=== PATIENT | female | born 1985 | race Two or more races ===

== ENCOUNTER 2016-11-07 11:54 | Emergency (ER) | payer SELFPAY ==
[2016-11-07 12:00] VITALS: TEMP 98.2
[2016-11-07 12:34] LABS: % IMMATURE GRANULYOCYTES 0.2 % (0.0-1.1); ABSOLUTE IMMATURE GRANULOCYTES 0.01 10^3/uL (0.00-0.10); ADD DIFF? NO; ADD MORPH? NO; ADD SCAN? NO; ATYPICAL LYMPHOCYTE FLAG 40 (0-99); FRAGMENT RBC FLAG 0 (0-99); LEFT SHIFT FLG 0 (0-99); LIPEMIA HEMOLYSIS FLAG 90 (0-99); MEAN CELL HEMOGLOBIN 31.7 pg (27.9-34.1); MEAN CELL HEMOGLOBIN CONCENTR. 34.3 g/dL (32.4-36.7); MEAN CELL VOLUME 92.6 fL (81.5-99.8); MEAN PLATELET VOLUME 10.5 fL (8.7-11.7); PLATELET CLUMPS FLAG 0 (0-99); PLATELET COUNT 185 10^3/uL (150-400); RED BLOOD CELL COUNT 3.78 10^6/uL (4.18-5.33); RED CELL DISTRIBUTION WIDTH 12.7 % (11.5-15.2)
[2016-11-07 12:46] LABS: ANION GAP 13 mEq/L (8-16); CALCIUM 9.5 mg/dL (8.5-10.4); CARBON DIOXIDE 21 mEq/l (22-31); CHLORIDE 104 mEq/L (97-110); CREATININE 0.7 mg/dL (0.6-1.0); GLOMERULAR FILTRATION RATE > 60; GLUCOSE 79 mg/dL (70-100); POTASSIUM 3.7 mEq/L (3.5-5.2); SODIUM 138 mEq/L (134-144)
[2016-11-07] MEDS ORDERED: MAG HYDROX/AL HYDROX/SIMETH 30 ML UDCUP PO ONE (12:55)
[2016-11-07] MEDS ORDERED: LIDOCAINE 2% VISCOUS 15 ML UDCUP PO ONE (12:55)
[2016-11-07] MEDS ORDERED: PANTOPRAZOLE SODIUM 40 MG in NS 100 ML IV ONE (12:56)
--- NOTE | 2016-11-07 13:39 | EDPHY ---
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 Patient reports that she noted her stool to be dark yesterday and took a sample to her primary care provider to test for blood. She was concerned as 5 years ago she was diagnosed with peptic ulcer disease; placed on a PPI for which she started to take 3 days ago again after not taking for over 2 months. Eating and drinking normally. Denies history of constipation or straining with bowel movements. No hemorrhoids. Denies taking NSAIDs. Has not been on any oral steroids recently. Endoscopy 5 years ago; treated for H pylori infection in [facility]. LMP: 1 weeks ago. No history of abdominal surgeries. Denies regular alcohol use. Modifying Factors: Prilosec Comment: ROS: Constitutional: No fever, no chills, no weight loss Eyes: No blurred vision Respiratory: No shortness of breath, no cough Cardiovascular: No chest pain Gastrointestinal: No nausea, no vomiting no diarrhea Genitourinary: No dysuria Extremities: No myalgias Neurologic: No weakness, no numbness Skin: No rashes Hematologic: No bruising, no bleeding MEDICAL/SURGICAL HISTORY: Generally healthy. He denies any surgical history. - Personal History LMP (Females 10-55): 1-7 Days Ago Current Tetanus/Diphtheria Vaccine: Unsure Current Tetanus Diphtheria and Acellular Pertussis (TDAP): Unsure - Medical/Surgical History Hx Asthma: No Hx Chronic Respiratory Disease: No Hx Diabetes: No Hx Cardiac Disease: No Hx Renal Disease: No Hx Cirrhosis: No Hx Alcoholism: No Hx HIV/AIDS: No Hx Splenectomy or Spleen Trauma: No Other PMH: UC - Social History Smoking Status: Never smoked Alcohol Use: None - Physical Exam Exam: CONSTITUTIONAL: Adult white female, well appearing, pleasant cooperative, awake and alert, no obvious distress HEENT: Atraumatic and normocephalic, PERRL, EOMI. Tympanic membranes clear. Oropharynx clear, no exudate and moist pink mucosa. Airway patent. No lymphadenopathy. No meningismus. Cardiovascular: Normal S1/S2, regular rate, regular rhythm, without murmur rub or gallop. PULMONARY/CHEST: Symmetrical and nontender. Clear to auscultation bilaterally Good air movement. No accessory muscle usage. ABDOMEN: Soft, nondistended, nontender, no rebound, no guarding, no peritoneal signs, no masses or organomegaly. No CVAT. RECTAL: Good sphincter tone, no masses, no hemorrhoids EXTREMITIES: 2/2 pulses, no deformities, no clubbing, no cyanosis or edema. NEUROLOGICAL: no focal neuro deficits. GCS 15. SKIN: Warm and dry, no erythema. no rash. Good capillary refill. Constitutional: Initial Vital Signs Temperature (C) 36.8 C 11/07/16 11:57 Heart Rate 140 H 11/07/16 11:57 Respiratory Rate 20 11/07/16 11:57 Blood Pressure 90/74 L 11/07/16 11:57 O2 Sat (%) 100 11/07/16 11:57 O2 Delivery Mode Room Air Allergies/Adverse Reactions: No Known Allergies Allergy (Unverified 11/07/16 12:00) Home Medications: Medication Instructions Recorded Pantoprazole Sodium [Protonix 40mg 40 mg PO BID #14 tab 11/07/16 (*)] Sucralfate [Carafate 1 GM (*)] 1 gm PO ACHS #28 tab 11/07/16 Medical Decision Making ED Course/Re-evaluation: Labs, urinalysis, urine , IV medication, oral medication, CT abdomen and pelvis scan Suspect gastritis versus peptic ulcer disease. Given IV Protonix and GI cocktail with adequate relief UA does not show signs of infection; specific gravity normal 1445: called by radiologist who reports that CT abdomen and pelvis scan showed no colitis/inflammatory bowel disease/pancreatitis/obstruction/gallbladder disease. + right ovarian cyst; no torsion. Will have patient follow up with GI outpatient for EGD, increase PPI to 40 twice daily, Carafate x 1 week, limit irritant foods. Differential Diagnosis: Abdominal pain in a female including but not limited to ovarian cyst, pelvic inflammatory disease, ovarian torsion, urinary tract infection, and appendicitis. Guaiac is trace positive H&H is stable; no active bleeding in the ER - Data Points Laboratory Results: Laboratory Results 11/07/16 12:20 11/07/16 12:20 11/07/16 11/07/16 11/07/16 13:35 12:54 12:20 WBC RBC Hgb Hct MCV MCH MCHC RDW Plt Count MPV Neut % (Auto) Lymph % (Auto) [place] % (Auto) Eos % (Auto) Baso % (Auto) Nucleat RBC Rel Count Absolute Neuts (auto) Absolute Lymphs (auto) Absolute Monos (auto) Absolute Eos (auto) Absolute Basos (auto) Absolute Nucleated RBC Immature Gran % Immature Gran # Sodium 138 mEq/L mEq/L (134-144) Potassium 3.7 mEq/L mEq/L (3.5-5.2) Chloride 104 mEq/L mEq/L (97-110) Carbon Dioxide 21 mEq/l L mEq/l (22-31) Anion Gap 13 mEq/L mEq/L (8-16) BUN 14 mg/dL mg/dL (7-23) Creatinine 0.8 mg/dL mg/dL (0.6-1.0) Estimated GFR > 60 Glucose 79 mg/dL mg/dL (70-100) Calcium 9.5 mg/dL mg/dL (8.5-10.4) Total Bilirubin 2.3 mg/dL H mg/dL (0.1-1.4) Conjugated Bilirubin 0.3 mg/dL mg/dL (0.0-0.5) Unconjugated Bilirubin 2.0 mg/dL H mg/dL (0.0-1.1) AST 15 IU/L IU/L (14-46) ALT 25 IU/L IU/L (9-52) Alkaline Phosphatase 37 IU/L L IU/L (38-126) Total Protein 7.2 g/dL g/dL (6.3-8.2) Albumin 4.4 g/dL g/dL (3.5-5.0) Lipase 127 IU/L IU/L (23-300) Urine Color PALE YELLOW Urine Appearance CLEAR Urine pH 6.0 (5.0-7.5) Ur Specific [place] 1.004 (1.002-1.030) Urine Protein NEGATIVE (NEGATIVE) Urine Ketones TRACE H (NEGATIVE) Urine Blood NEGATIVE (NEGATIVE) Urine Nitrate NEGATIVE (NEGATIVE) Urine Bilirubin NEGATIVE (NEGATIVE) Urine Urobilinogen NEGATIVE EU EU (0.2-1.0) Ur Leukocyte Esterase NEGATIVE (NEGATIVE) Urine Glucose NEGATIVE (NEGATIVE) Stool Occult Bld Scrn POSITIVE H (NEGATIVE) 11/07/16 11/07/16 12:20 12:20 WBC 4.76 10^3/uL 10^3/uL (3.80-9.50) RBC 3.78 10^6/uL L 10^6/uL (4.18-5.33) Hgb 12.0 g/dL L g/dL (12.6-16.3) Hct 35.0 % L % (38.0-47.0) MCV 92.6 fL fL (81.5-99.8) MCH 31.7 pg pg (27.9-34.1) MCHC 34.3 g/dL g/dL (32.4-36.7) RDW 12.7 % % (11.5-15.2) Plt Count 185 10^3/uL 10^3/uL (150-400) MPV 10.5 fL fL (8.7-11.7) Neut % (Auto) 49.6 % % (39.3-74.2) Lymph % (Auto) 41.2 % % (15.0-45.0) [place] % (Auto) 7.8 % % (4.5-13.0) Eos % (Auto) 0.8 % % (0.6-7.6) Baso % (Auto) 0.4 % % (0.3-1.7) Nucleat RBC Rel Count 0.0 % % (0.0-0.2) Absolute Neuts (auto) 2.36 10^3/uL 10^3/uL (1.70-6.50) Absolute Lymphs (auto) 1.96 10^3/uL 10^3/uL (1.00-3.00) Absolute Monos (auto) 0.37 10^3/uL 10^3/uL (0.30-0.80) Absolute Eos (auto) 0.04 10^3/uL 10^3/uL (0.03-0.40) Absolute Basos (auto) 0.02 10^3/uL 10^3/uL (0.02-0.10) Absolute Nucleated RBC 0.00 10^3/uL 10^3/uL (0-0.01) Immature Gran % 0.2 % % (0.0-1.1) Immature Gran # 0.01 10^3/uL 10^3/uL (0.00-0.10) Sodium 138 mEq/L mEq/L (134-144) Potassium 3.7 mEq/L mEq/L (3.5-5.2) Chloride 104 mEq/L mEq/L (97-110) Carbon Dioxide 21 mEq/l L mEq/l (22-31) Anion Gap 13 mEq/L mEq/L (8-16) BUN 14 mg/dL mg/dL (7-23) Creatinine 0.7 mg/dL mg/dL (0.6-1.0) Estimated GFR > 60 Glucose 79 mg/dL mg/dL (70-100) Calcium 9.5 mg/dL mg/dL (8.5-10.4) Total Bilirubin Conjugated Bilirubin Unconjugated Bilirubin AST ALT Alkaline Phosphatase Total Protein Albumin Lipase Urine Color Urine Appearance Urine pH Ur Specific [place] Urine Protein Urine Ketones Urine Blood Urine Nitrate Urine Bilirubin Urine Urobilinogen Ur Leukocyte Esterase Urine Glucose Stool Occult Bld Scrn Medications Given: Discontinued Medications Al Hydroxide/Mg Hydroxide (Maalox Susp) 30 ml PO ONCE ONE Stop: 11/07/16 12:56 Last Admin: 11/07/16 13:02 Dose: 30 ml Pantoprazole Sodium 40 mg/ (Sodium Chloride) 100 mls @ 200 mls/hr IV EDNOW ONE Stop: 11/07/16 13:25 Last Admin: 11/07/16 13:03 Dose: 100 mls Lidocaine (Lidocaine 2% Viscous) 15 ml PO ONCE ONE Stop: 11/07/16 12:56 Last Admin: 11/07/16 13:02 Dose: 15 ml Departure - Departure Disposition: Home, Routine, Self-Care Clinical Impression: PUD (peptic ulcer disease) Gastritis Qualifiers: Gastritis type: unspecified gastritis Chronicity: acute Gastritis bleeding: presence of bleeding unspecified Qualified Code(s): K29.00 - Acute gastritis without bleeding Condition: Good Instructions: Peptic Ulcer (ED), Gastritis (ED), Diet for Stomach Ulcers and Gastritis (ED) Referrals: Carlo Mccoy MD [Medical Doctor] - As per Instructions Prescriptions: Pantoprazole Sodium [Protonix 40mg (*)] 40 mg PO BID #14 tab Sucralfate [Carafate 1 GM (*)] 1 gm PO ACHS #28 tab Print Language: Wolof
[2016-11-07 13:47] LABS: COLOR PALE YELLOW; LEUKOCYTE ESTERASE,URINE NEGATIVE (NEGATIVE); NITRITE,URINE NEGATIVE (NEGATIVE)
[2016-11-07 13:57] LABS: ALANINE AMINOTRANSFERASE 25 IU/L (9-52); ALBUMIN 4.4 g/dL (3.5-5.0); ALKALINE PHOSPHATASE 37 IU/L (38-126); ANION GAP 13 mEq/L (8-16); ASPARTATE AMINOTRANSFERASE 15 IU/L (14-46); BILIRUBIN,TOTAL 2.3 mg/dL (0.1-1.4); BILIRUBIN-CONJUGATED 0.3 mg/dL (0.0-0.5); CALCIUM 9.5 mg/dL (8.5-10.4); CARBON DIOXIDE 21 mEq/l (22-31); CHLORIDE 104 mEq/L (97-110); CREATININE 0.8 mg/dL (0.6-1.0); GLOMERULAR FILTRATION RATE > 60; GLUCOSE 79 mg/dL (70-100); POTASSIUM 3.7 mEq/L (3.5-5.2); SODIUM 138 mEq/L (134-144); TOTAL PROTEIN 7.2 g/dL (6.3-8.2)
[2016-11-07] MEDS ORDERED: IOPAMIDOL (ISOVUE-300) 100 ML BTL ONE (14:03)
[2016-11-07 15:24] VITALS: BP 91/47; PULSE 72; RESP 16; O2SAT 93
== END 2016-11-07 15:24 | disposition home or self-care (01) ==
DX: K29.00 Acute gastritis without bleeding (principal); K27.9 Peptic ulcer, site unspecified, unspecified as acute or chronic, without hemorrhage or perforation
CPT/HCPCS: 96365; Q9967

== ENCOUNTER 2017-12-10 17:58 | Inpatient (IN) | payer OTHER ==
[2017-12-10] MEDS ORDERED: PANTOPRAZOLE SODIUM 40 MG VIAL IVP ONE (18:18)
--- NOTE | 2017-12-10 18:21 | EDPHY ---
H & P Time Seen by Provider: 12/10/17 18:09 HPI/ROS: CHIEF COMPLAINT: Vomiting blood HISTORY OF PRESENT ILLNESS: The patient is a 32-year-old female with history of gastritis and bleeding ulcer here with chief complaint of 1 bout of bloody emesis just prior to arrival. She reports vomiting a large amount of blood after feeling nauseous. She has had no bloody emesis since. She has noticed no dark tarry stools. She has reported feeling generally weak for the last 7 days or so. She had an upper endoscopy done in March of 2017 in [facility] which showed gastritis without ulcer. She takes no prescribed medications. She takes no blood thinners. She denies any pain. REVIEW OF SYSTEMS: Constitutional: No fever, no chills. Eyes: No discharge. ENT: No sore throat. Cardiovascular: No chest pain, no palpitations. Respiratory: No cough, no shortness of breath. Gastrointestinal: No abdominal pain, + vomiting. Genitourinary: No hematuria. Musculoskeletal: No back pain. Skin: No rashes. Neurological: No headache. Smoking Status: Never smoked Physical Exam: General Appearance: Alert and no distress. Eyes: Pupils equal and round no injection. Respiratory: Chest is nontender, lungs are clear to auscultation. Cardiac: regular rate and rhythm. Gastrointestinal: Abdomen is soft and nontender, no masses, bowel sounds normal. Musculoskeletal: Neck is supple and nontender. Extremities have full range of motion and are nontender. Skin: No rashes or lesions. Constitutional: Initial Vital Signs Temperature (C) 36.8 C 12/10/17 18:01 Heart Rate 109 H 12/10/17 18:01 Respiratory Rate 16 12/10/17 18:01 Blood Pressure 88/64 L 12/10/17 18:01 O2 Sat (%) 99 12/10/17 18:01 O2 Delivery Mode Room Air Allergies/Adverse Reactions: No Known Allergies Allergy (Unverified 11/07/16 12:00) Home Medications: Medication Instructions Recorded Cholecalciferol Vit D3 [Vitamin D3 5,000 units PO DAILY 12/10/17 (*)] Herbals/Supplements -Info Only 1 ea PO DAILY 12/10/17 Medical Decision Making ED Course/Re-evaluation: 32-year-old female here with 1 episode of vomiting bright red blood. She did vomit approximately 20 30 mL of bright red blood. She remained hemodynamically stable in the emergency room with no hypotension or tachycardia. Her hemoglobin is 11 with a normal BU N. I discussed the case with GI who agreed with admission for upper and dog's could be tomorrow morning. She was given 40 mg IV Protonix. Patient was concerned about the cost of staying overnight in the hospital and having the the scope done tomorrow. States that it was my medical recommendation as he stayed the night be monitored before having the upper endoscopy done tomorrow given the amount of blood that she has vomited. Patient is agreeable with this plan after multiple discussions. Differential Diagnosis: Rae-Ayon tear, gastric ulcer, ulcer perforation - Data Points Laboratory Results: Laboratory Results 12/10/17 18:15 12/10/17 18:15 12/10/17 12/10/17 12/10/17 18:15 18:15 18:15 WBC 6.75 10^3/uL 10^3/uL (3.80-9.50) RBC 3.60 10^6/uL L 10^6/uL (4.18-5.33) Hgb 11.1 g/dL L g/dL (12.6-16.3) Hct 33.7 % L % (38.0-47.0) MCV 93.6 fL fL (81.5-99.8) MCH 30.8 pg pg (27.9-34.1) MCHC 32.9 g/dL g/dL (32.4-36.7) RDW 12.9 % % (11.5-15.2) Plt Count 209 10^3/uL 10^3/uL (150-400) MPV 10.2 fL fL (8.7-11.7) Neut % (Auto) 41.3 % % (39.3-74.2) Lymph % (Auto) 48.7 % H % (15.0-45.0) [place] % (Auto) 7.6 % % (4.5-13.0) Eos % (Auto) 1.8 % % (0.6-7.6) Baso % (Auto) 0.3 % % (0.3-1.7) Nucleat RBC Rel Count 0.0 % % (0.0-0.2) Absolute Neuts (auto) 2.79 10^3/uL 10^3/uL (1.70-6.50) Absolute Lymphs (auto) 3.29 10^3/uL H 10^3/uL (1.00-3.00) Absolute Monos (auto) 0.51 10^3/uL 10^3/uL (0.30-0.80) Absolute Eos (auto) 0.12 10^3/uL 10^3/uL (0.03-0.40) Absolute Basos (auto) 0.02 10^3/uL 10^3/uL (0.02-0.10) Absolute Nucleated RBC 0.00 10^3/uL 10^3/uL (0-0.01) Immature Gran % 0.3 % % (0.0-1.1) Immature Gran # 0.02 10^3/uL 10^3/uL (0.00-0.10) Sodium 137 mEq/L mEq/L (135-145) Potassium 4.0 mEq/L mEq/L (3.3-5.0) Chloride 106 mEq/L mEq/L (97-110) Carbon Dioxide 24 mEq/l mEq/l (22-31) Anion Gap 7 mEq/L L mEq/L (8-16) BUN 17 mg/dL mg/dL (7-23) Creatinine 0.6 mg/dL mg/dL (0.6-1.0) Estimated GFR > 60 Glucose 107 mg/dL H mg/dL (70-100) Calcium 8.5 mg/dL mg/dL (8.5-10.4) Beta HCG, Qual NEGATIVE Medications Given: Sodium Chloride (Ns) 1,000 mls @ 75 mls/hr IV CONT CHASE Stop: 06/08/18 20:14 Last Admin: 12/10/17 21:43 Dose: 1,000 mls Melatonin (Melatonin) 3 mg PO HS CHASE Stop: 06/08/18 20:59 Last Admin: 12/10/17 21:48 Dose: Not Given Discontinued Medications Pantoprazole Sodium (Protonix) 40 mg IVP EDNOW ONE Stop: 12/10/17 18:19 Last Admin: 12/10/17 18:28 Dose: 40 mg Departure - Departure Disposition: [facility]
[2017-12-10 18:26] LABS: PLATELET COUNT 209 10^3/uL (150-400)
[2017-12-10] MEDS ORDERED: ACETAMINOPHEN 325 MG TAB PO PRN (20:05)
[2017-12-10] MEDS ORDERED: ONDANSETRON 4 MG/2 ML VIAL IVP PRN (20:05)
[2017-12-10] MEDS ORDERED: ZOLPIDEM TARTRATE 5 MG TAB PO PRN (20:05)
[2017-12-10] MEDS ORDERED: NS 1,000 ML IV SCH (20:15)
[2017-12-10] MEDS: MELATONIN 3 MG TAB PO SCH (21:48)
--- NOTE | 2017-12-10 23:06 | PDGENHP ---
History and Physical History and Physical: CC: Hematemesis HISTORY: This patient presents to the emergency room today after a moderately large volume of hematemesis with some mild nausea but without abdominal pain. There was 1 episode and the patient brings in with the ER physician described to me as approximately a cup of bright red blood. She does not take NSAIDs does not drink alcohol does not have history of liver disease. She has had no vomiting prior to the 1 emesis episode today and has had normal stools lately. She has had no new nausea and has not been having abdominal pains or bowel issues. She was seen here 1 year ago with some melenic stools with some abdominal pain. She had a CT scan abdomen that was unremarkable. At that time is recommended that she see Gastroenterology to consider endoscopy, however she apparently did not have any follow up with Gastroenterology The patient does state she has had 1 episode of bleeding ulcer in the past as well as some episodes of nonbleeding ulcer and some gastritis episodes in the past and she has had for upper endoscopies in the past. She was treated in her home country of [facility] for Helicobacter pylori in the past and since then has had both endoscopic and blood test showing evidence of a right occasion of the H pylori. As far as I can tell none of her ulcer or gastritis episodes were caused by NSAIDs and she does not drink any alcohol. She has no history of liver disease. There is no history of ulcer disease in the family. ROS: A comprehensive 10 system review revealed no other significant findings PAST MEDICAL HISTORY: GI bleed Peptic ulcer Gastritis Treated Helicobacter pylori with tests subsequently showing no evidence of H pylori FAMILY MEDICAL HISTORY: Hyper hypothyroidism SOCIAL HISTORY: She is accompanied by her No tobacco or alcohol no street drugs MEDICATIONS: The patients list has been reconciled by our clinical pharmacist in the EMR. I have reviewed the list and ordered appropriate medicines. 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: Examination: General: alert, oriented, good mentation, relaxed Skin: warm, dry, good color, no rash HEENT: normal Neck: no mass or jvd Resps: relaxed Lungs: clear breath sounds Heart: regular, no murmur Abdomen: soft, nondistended, nontender, +BS, no mass No Bleeding or bruising Neurologic: normal speech/language, normal director of acquisitions, no focal weakness IV site: looks normal LABORATORY DATA: Hemoglobin 11 normocytic otherwise normal CBC Negative test Normal basic metabolic panel RADIOLOGY STUDIES: None ASSESSMENT: * acute upper GI bleed with hematemesis * initial mild low blood pressure and high pulse have responded very quickly to fluid * mild normocytic anemia uncertain baseline with a long history of anemia * prior history of ulcer and gastritis along with GI bleeds, apparently successfully treated H pylori in the past with recurrent episodes of peptic trouble since that treatment; no use of NSAIDs to explain her peptic disease PLANS: * Observe here in the hospital * IV hydration * Serial hemoglobin counts * IV Protonix has been started will continue * NPO for the moment * Upper endoscopy tomorrow morning, Dr. King has been notified and is planning on endoscopy I have reviewed the patient's case in detail with Robert Nieto of the ER I have reviewed the patient's past medical records as part of this assessment, including previous ER visit records and lab studies
[2017-12-11 05:15] LABS: INR 1.2 (0.83-1.16); PROTIME(PATIENT) 15.4 SEC (12.0-15.0)
[2017-12-11 05:18] LABS: PLATELET COUNT 177 10^3/uL (150-400)
[2017-12-11] MEDS: PANTOPRAZOLE SODIUM 40 MG VIAL IVP SCH ×2 (08:05→20:16)
[2017-12-11] MEDS ORDERED: LR 1,000 ML IV ONE (09:14)
--- NOTE | 2017-12-11 09:50 | GCON ---
DATE OF CONSULTATION: 12/11/2017 REFERRING PHYSICIAN: Gavin Garcia MD REASON FOR CONSULTATION: Hematemesis. HISTORY OF PRESENT ILLNESS: Cassandra is a 32-year-old female who has a history of recurrent peptic ulcer disease, who was admitted to hospital to observation through the emergency room last night after one episode of hematemesis of 300 cc of bright red blood, which was preceded by nausea and diaphoresis. She denied any black, tarry stools preceding or post vomiting. She has denied any use of nonsteroidal anti-inflammatory drugs. She does not drink alcohol or smoke tobacco. She does have a remote history of peptic ulcer diagnosed on upper endoscopy in [facility] several years ago, which she was noted to have Helicobacter pylori gastritis. She was treated with acid suppression and antibiotic therapy with followup endoscopy showing only mild gastritis and H pylori negative. She had an episode of a GI bleed one year ago which was treated medically and was not scoped here in the [facility], but on return to [facility] she stated she had an endoscopy which showed mild inflammation only with H pylori negative. She does have a history of recurrent iron deficiency. She denies any heavy menses in the past. She was on melatonin 3 mg at bedtime prior to admission. ALLERGIES: She has no known drug allergies. PAST MEDICAL HISTORY: Otherwise unremarkable. PAST SURGICAL HISTORY: Negative. FAMILY HISTORY: Negative for PUD, celiac disease of GI malignancies. SOCIAL HISTORY: She is . She lives in [place] with her . She has received her primary care at [facility] in the past. She does not smoke tobacco or use illicit drugs. REVIEW OF SYSTEMS: Other than recent episode of hematemesis, nausea and diaphoresis were negative for comprehensive review of systems. EXAM: VITAL SIGNS: Temperature is 36.9 Celsius, pulse is 85 and regular, blood pressure 104/60, respiratory rate is 12, O2 saturation 97% on room air. GENERAL: A slight built female lying in bed, in no apparent distress. INTEGUMENT: Clear. HEENT: Head atraumatic, normocephalic. Pupils equal, round, react to light. EOMs intact. Sclerae nonicteric. Mucous membranes moist. Dentition good. Nares patent. NECK: Supple. Trachea midline. PULMONARY: Lungs were clear to percussion and auscultation. CARDIOVASCULAR: Regular rhythm, rate. Normal S1, S2 without murmur. Peripheral pulses strong bilaterally. No pedal edema. GASTROINTESTINAL: Abdomen flat and supple. Positive bowel sounds. No liver, spleen tip palpable. There is mild tenderness in the epigastrium to deep palpation without palpable mass or rebound. EXTREMITIES: Without deformity. NEURO: Patient was alert and oriented x3. There are no focal neurologic deficits. LABS: Admission hemoglobin 11.1, hematocrit 33.7. With hydration this a.m. hemoglobin 9.9, hematocrit 30.0, MCV is 92, MCHC 33, RDW 13.0, platelets 177,000 , white count 7.34. Pro time: 15.4, INR 1.2. Electrolytes normal. Potassium 4.0, BUN is 17, creatinine 0.6, glucose 107. Beta HCG is negative. Calcium 8.5. IMPRESSION: Hematemesis and posthemorrhagic anemia in an otherwise healthy 32- year-old female with a history of recurrent peptic ulcer disease and prior history of Helicobacter pylori gastritis, rule out recurrent peptic ulcer with bleed, rule out Helicobacter pylori gastritis, rule out celiac disease as an etiology for the patient's recurrent iron deficiency, albeit no evidence of iron deficiency today. RECOMMENDATION: Would be: 1. N.p.o. 2. IV PPI therapy. 3. Esophagogastroduodenoscopy later today with gastric biopsy to rule out H pylori, small bowel biopsies to rule out celiac disease and intervention with endoclipping or cauterization of peptic ulcer if identified and felt to be at high risk for rebleed. /[id number]/MODL MTDD
--- NOTE | 2017-12-11 10:03 | PDANEPAE ---
ANE History of Present Illness EGD for GI bleed ANE Past Medical History - Cardiovascular History Hx Hypertension: No Hx Arrhythmias: No Hx Chest Pain: No Hx Coronary Artery / Peripheral Vascular Disease: No Hx CHF / Valvular Disease: No Hx Palpitations: No - Pulmonary History Hx COPD: No Hx Asthma/Reactive Airway Disease: No Hx Recent Upper Respiratory Infection: No Hx Oxygen in Use at Home: No Hx Sleep Apnea: No Sleep Apnea Screening Result - Last Documented: Negative - Endocrine History Hx Diabetes: No Hypothyroid: No Hyperthyroid: No Obesity: no - Chronic Pain History Chronic Pain: No ANE Review of Systems Review of systems is: negative Review of Systems: - Exercise capacity Exercise capacity: >=4 METS ANE Patient History - Allergies Allergies/Adverse Reactions: No Known Allergies Allergy (Unverified 11/07/16 12:00) - Home Medications Home medications: home medication list seen and reviewed Home Medications: Cholecalciferol Vit D3 [Vitamin D3 (*)] 5,000 units PO DAILY 12/10/17 [Last Taken 12/10/17] Herbals/Supplements -Info Only 1 ea PO DAILY 12/10/17 [Last Taken 12/10/17] - NPO status NPO Since - Liquids (Date): 12/10/17 NPO Since - Liquids (Time): 16:00 NPO Since - Solids (Date): 12/10/17 NPO Since - Solids (Time): 16:00 - Anes Hx Anes Hx: no prior problems - Smoking Hx Smoking Status: Never smoked ANE Labs/Vital Signs - Labs Result Diagrams: 12/11/17 04:45 12/10/17 18:15 - Vital Signs Blood Pressure: 104/60 Heart Rate: 85 Respiratory Rate: 12 O2 Sat (%): 97 Height: 170 cm Weight: 53 kg ANE Physical Exam - Airway Neck exam: FROM Mallampati Score: Class 2 Mouth exam: normal dental/mouth exam - Pulmonary Pulmonary: no respiratory distress - Cardiovascular Cardiovascular: regular rate and rhythym - ASA Status ASA Status: II ANE Anesthesia Plan Anesthesia Plan: GA with mask
--- NOTE | 2017-12-11 10:03 | POSTANESTH ---
Post Anesthetic Evaluation Cardiovascular Status: Normal, Stable Respiratory Status: Normal, Stable Level of Consciousness/Mental Status: Can Participate in Eval, Mildly Sleepy, Arousable Pain Control: Adequate, Prn Tx Ordered Nausea/Vomiting Control: Adequate, Prn Tx Ordered Complications Possibly Related to Anesthesia: None Noted
[2017-12-11] MEDS ORDERED: LIDOCAINE 2% 2 ML INJ ONE (10:08)
[2017-12-11] MEDS ORDERED: PROPOFOL 200 MG/20 ML VIAL ONE (10:25)
[2017-12-11] MEDS ORDERED: ALBUTEROL 3 ML DEYVIAL IH PRN (10:32)
[2017-12-11] MEDS ORDERED: fentaNYL 100 MCG/2 ML INJ IVP PRN (10:32)
[2017-12-11] MEDS ORDERED: ONDANSETRON 4 MG/2 ML VIAL IVP PRN (10:32)
[2017-12-11] MEDS ORDERED: LR 500 ML IV PRN (10:32)
[2017-12-11] MEDS ORDERED: NALOXONE HCL 0.4 MG/ML INJ IVP PRN (10:32)
--- NOTE | 2017-12-11 10:54 | GIREPORT ---
[facility] Surgical Services - Endoscopy Department Patient Name: Cassandra Patel Procedure Date: 12/11/2017 8:36 AM Patient Type: Inpatient Attending MD/ ER Physician: Santiago King MD Procedure: Upper GI endoscopy Indications: Epigastric abdominal pain, Hematemesis, Melena, Acute post hemorrhagic anemia Providers: Santiago King MD Medicines: Propofol per Anesthesia Complications: No immediate complications. Description of Procedure: After obtaining informed consent, the endoscope was passed under direct vision. Throughout the procedure, the patient's blood pressure, pulse, and oxygen saturations were monitored continuously. The Endoscope was intro duced through the mouth, and advanced to the third part of duodenum. The uppe r GI endoscopy was accomplished without difficulty. The patient tolerated e procedure well. Findings: The examined esophagus was normal. One oozing cratered gastric ulcer with a visible vessel was found in th e gastric fundus and on the greater curvature of the stomach. The lesion was 8 mm in largest dimension. For hemostasis, one hemostatic clip was successfully placed. There was no bleeding at the end of the procedure. Patchy nodular mucosa was found in the gastric body and in the gastric antrum. Biopsies were taken with a cold forceps for histology. The examined duodenum was normal. Biopsies for histology were taken wit h a cold forceps for evaluation of celiac disease. Estimated Blood Loss: Estimated blood loss: none. Post Op Diagnosis: - Normal esophagus. - Oozing gastric ulcer with a visible vessel. Clip was placed. - Nodular mucosa in the gastric body and in the gastric antrum. Biopsie d. - Normal examined duodenum. Biopsied. Recommendation: - [facility]. - Continue present medications. - Clear liquid diet today. - Check hemoglobin q 12 hours for two days. - Await pathology results. - Repeat upper endoscopy in 2 months to check healing. Attending Participation: I personally performed the entire procedure. Santiago King MD Santiago King MD 12/11/2017 10:53:56 AM This report has been signed electronicallySantiago King MD Number of Addenda: 0 Note Initiated On: 12/11/2017 8:36 AM [email or web address]
--- NOTE | 2017-12-11 12:44 | ASMTCMCOM ---
CM Note CM Note Notes: Pt admitted with upper GI bleed, hx of H pylori. She is from [facility] and [facility] and a patient at the [facility]. She lives at home with her . Plan is for her to get an endoscopy today. CM spoke w/RN, anticipate she will dc home w/support of when medically stable. CM available for any changes. DC Plan: Independent Date Signed: 12/11/2017 12:44 PM Electronically Signed By:Katty Jaquez RN
--- NOTE | 2017-12-11 15:27 | HOSPPROG ---
Hospitalist Progress Note Assessment/Plan: * Gastric ulcer with visible vessel s/p clip -clear liquids -serial HH q12 x 2 days -pathology pending -repeat EGD 2 months -PPI * Acute blood loss anemia -follow * Elevated PT -check LFT Subjective: No new complaints. Objective: Vital Signs Temp Pulse Resp BP Pulse Ox 36.9 C 83 12 94/48 L 98 12/11/17 14:23 12/11/17 14:23 12/11/17 14:23 12/11/17 14:23 12/11/17 14:23 Laboratory Results 12/11/17 04:45 12/10/17 12/11/17 12/12/17 05:59 05:59 05:59 Intake Total 350 Balance 350 PT 15.4 SEC (12.0-15.0) H 12/11/17 04:45 INR 1.20 (0.83-1.16) H 12/11/17 04:45 - Physical Exam Constitutional: no apparent distress, appears nourished, not in pain Cardiovascular: regular rate and rhythym, no murmur, rub, or gallop Respiratory: no respiratory distress, no rales or rhonchi, clear to auscultation Gastrointestinal: normoactive bowel sounds, soft, non-tender abdomen, no palpable masses Skin: no rashes or abrasions, no fluctuance, no induration Neurologic: AAOx3, sensation intact bilaterally Psychiatric: interacting appropriately, not anxious, not encephalopathic, thought process linear Lymph, Heme, Immunologic: no cervical LAD, no supraclavicular LAD ICD10 Worksheet Patient Problems: Problems Problem Status Onset Gastric ulcer Acute - ICD10 Problem Qualifiers (1) Gastric ulcer
--- NOTE | 2017-12-11 17:49 | PDMN ---
Medical Necessity Medical necessity: MCG :M180 GIB upper: A-2 days hematemesis with dropping H/ H EGD shows gastric ulcer with visible vessel S/P clip - further monitoring of H/H , acute blood loss anemia cont. to monitor and eval. status changed to INPT 12/11/17 for ongoing med nec. > 2 MN
[2017-12-11] MEDS: MELATONIN 3 MG TAB PO SCH (20:20)
[2017-12-12 05:47] LABS: INR 1.23 (0.83-1.16); PROTIME(PATIENT) 15.7 SEC (12.0-15.0)
[2017-12-12] MEDS: PANTOPRAZOLE SODIUM 40 MG VIAL IVP SCH (07:50)
[2017-12-12] MEDS ORDERED: PHYTONADIONE 2.5 MG/2.5 ML ORAL UDL PO ONE (08:29)
--- NOTE | 2017-12-12 10:00 | SOAPPROG ---
SOAP Progress Note Assessment/Plan: Assessment: 1. with bleed; S/P endo clip with hemostasis with post hemorrhagic anemia. 2. Melena x 1 since EGD, likely old blood. 3. Low ALB and elevated PT; likely consumptive from acute on chronic UGI bleed. 4. Elevated T. Bili without elevation of AST/ALT c/w Gilbert's Syndrome. Plan: 1. Regular diet after RUQ US. 2. D/C IV PPI. Protonix 40 mg PO BID x 2 months. 3. Repeat EGD in 2 months. 4. ? Home tomorrow if no further GI bleeding. Santiago King MD 12/12/17 10:01 Subjective: CC: with bleed. Interval HPI: One black stool since EGD and mild epigastric discomfort. Objective: Vital Signs Temp Pulse Resp BP Pulse Ox 36.7 C 74 12 103/50 L 97 12/12/17 07:55 12/12/17 07:55 12/12/17 07:55 12/12/17 07:55 12/12/17 07:55 Laboratory Results 12/12/17 04:50 12/11/17 12/12/17 12/13/17 05:59 05:59 05:59 Intake Total 450 Balance 450 PT 15.7 SEC (12.0-15.0) H 12/12/17 04:50 INR 1.23 (0.83-1.16) H 12/12/17 04:50 Physical Exam - Physical Exam General Appearance: alert, no apparent distress Respiratory: lungs clear, normal breath sounds Cardiac/Chest: normal peripheral pulses, regular rate, rhythm Abdomen: normal bowel sounds, non-tender, soft Skin: normal color, warm/dry Neuro/Psych: alert, normal mood/affect ICD10 Worksheet Patient Problems: Problems Problem Status Onset Gastric ulcer Acute
--- NOTE | 2017-12-12 10:29 | ASMTCMCOM ---
CM Note CM Note Notes: CM spoke with RN, patient likely to discharge tomorrow 12/13 independent. CM to follow. Date Signed: 12/12/2017 10:29 AM Electronically Signed By:Dorita Godinez
--- NOTE | 2017-12-12 16:22 | HOSPPROG ---
Hospitalist Progress Note Assessment/Plan: * Gastric ulcer with visible vessel s/p clip -serial HH q12 x 2 days -pathology pending -repeat EGD 2 months -PPI * Acute blood loss anemia -follow * Elevated PT -PO Vit K x 1 * Low albumin - ? malnutrition vs consumption due to chronic GIB * Protivin * Fatty liver by US Subjective: No new complaints Objective: Vital Signs Temp Pulse Resp BP Pulse Ox 36.7 C 78 12 95/48 L 97 12/12/17 15:11 12/12/17 15:11 12/12/17 15:11 12/12/17 15:11 12/12/17 15:11 Laboratory Results 12/12/17 04:50 12/11/17 12/12/17 12/13/17 05:59 05:59 05:59 Intake Total 450 Balance 450 PT 15.7 SEC (12.0-15.0) H 12/12/17 04:50 INR 1.23 (0.83-1.16) H 12/12/17 04:50 d/w Dr. King regarding LFT abnormalities Abd US - fatty liver - Physical Exam Constitutional: no apparent distress, appears nourished, not in pain Cardiovascular: regular rate and rhythym, no murmur, rub, or gallop Respiratory: no respiratory distress, no rales or rhonchi, clear to auscultation Gastrointestinal: normoactive bowel sounds, soft, non-tender abdomen, no palpable masses Skin: no rashes or abrasions, no fluctuance, no induration Neurologic: AAOx3, sensation intact bilaterally Psychiatric: interacting appropriately, not anxious, not encephalopathic, thought process linear ICD10 Worksheet Patient Problems: Problems Problem Status Onset Gastric ulcer Acute - ICD10 Problem Qualifiers (1) Gastric ulcer
[2017-12-12] MEDS: PANTOPRAZOLE SODIUM 40 MG TAB PO SCH (20:27)
[2017-12-12] MEDS: MELATONIN 3 MG TAB PO SCH (20:30)
[2017-12-13 05:30] LABS: INR 1.13 (0.83-1.16); PROTIME(PATIENT) 14.7 SEC (12.0-15.0)
[2017-12-13 08:29] VITALS: BP 104/52
--- NOTE | 2017-12-13 10:11 | ASMTLACE ---
LACE Length of stay for Answers: 2 days current admission Acuity / Level of Answers: Yes Care: Did the patient have an inpatient admission? Comorbidities - select Answers: Peptic ulcer disease all that apply # of Emergency department Answers: 1-2 visits in the last 6 months Score: 8 Date Signed: 12/13/2017 10:10 AM Electronically Signed By:Monica Vance RN
--- NOTE | 2017-12-13 10:14 | ASMTDCNOTE ---
Case Management Discharge Discharge Order Complete? Answers: Yes Patient to Obtain Answers: Independently Medications Transportation Arranged Answers: Family/Friends Discharge Comments Notes: D/W MD, patient will discharge independently today. No CM needs identified. CM available for any changes or needs that arise. Date Signed: 12/13/2017 10:14 AM Electronically Signed By:Monica Vance RN
[2017-12-13] MEDS: PANTOPRAZOLE SODIUM 40 MG TAB PO SCH (10:19)
--- NOTE | 2017-12-13 17:49 | GDS ---
DISCHARGE DIAGNOSES: 1. Upper gastrointestinal bleed. 2. Gastric ulcer with visible vessel, status post clipping. 3. Acute blood loss anemia. 4. Elevated protime suspect consumptive. 5. Low albumin, suspect due to chronic gastrointestinal bleed. 6. Gilbert's. 7. Fatty liver. HISTORY: This Cassandra is a 32-year-old female with a history of previous gastric ulcer. She has previ ously been treated for H. pylori. She now re-presents to the hospital with recurrent upper GI bleed and acute blood loss anemia. She underwent EGD that showed a gastric ulcer with visible vessel. Dr. King recommended serial hemoglobins and Hs q.12 hours for 2 days, which remain stable. Pathol ogy remains pending at discharge. She will follow up results with Dr. King. Repeat EGD recomme nded in 2 months. She will continue on a proton pump inhibitor until that time. Her protime was elevated, this did respond to a dose of oral vitamin K, she also had a low albumin. I suspect she has been having a chronic GI bleed for some time and that has been consumptive of these elements. She is advised to eat a healthy diet. Anticipate these will improve. She did get an abd ominal ultrasound that incidentally showed fatty liver. Although that is of unclear significance. DISCHARGE MEDICATIONS: Please see computer record for full detailed list. New medications: Protonix 40 mg p.o. twice daily for 2 months. ADDITIONAL DISCHARGE INSTRUCTIONS: 1. Repeat EGD in 2 months. 2. Biopsy of ulcer is pending at discharge. Please follow up results with Dr. King. 3. Greater than 30 minutes' time was spent arranging this discharge. Patient seen and examined by me on day of discharge. /[id number]/MODL
== END 2017-12-13 11:25 | disposition home or self-care (01) | DRG 378 ==
LOC: F3E 21:15 → OBSVTOIN 12-11 12:51
PROVIDERS: ADMIT Internal Medicine; ATTEND Internal Medicine
DX: K25.4 Chronic or unspecified gastric ulcer with hemorrhage (principal); D62 Acute posthemorrhagic anemia; E88.09 Other disorders of plasma-protein metabolism, not elsewhere classified; E80.4 Gilbert syndrome
CPT/HCPCS: 82607-90; 96374; G0378; J2704